=== PATIENT | female | born 1955 | race Caucasian/White ===

== ENCOUNTER 2021-06-28 09:52 | Emergency (ER) | payer MEDICARE, BC ==
[~2021-06-28] VITALS: Ht 172.7 cm; Wt 175.5 kg
[~2021-06-28 09:52] MED LIST: BETAPACE 80MG80 MG PO; INDOCIN 25MG CA25 MG PO; KLOR-CON M1010 MEQ PO; PRINZIDE 25 MG-1 TAB PO; XARELTO20 MG PO; ZYLOPRIM 100MG100 MG PO
[2021-06-28 10:01] VITALS: TEMP 97.5
[2021-06-28 11:18] VITALS: BP 143/77; PULSE 59
== END 2021-06-28 11:18 | disposition home or self-care (01) ==
LOC: COL.ER 09:52
DX: S09.90XA Unspecified injury of head, initial encounter (principal); I48.91 Unspecified atrial fibrillation; Z79.01 Long term (current) use of anticoagulants; W01.198A Fall on same level from slipping, tripping and stumbling with subsequent striking against other object, initial encounter